=== PATIENT | female | born 1990 | race Caucasian/White ===

== ENCOUNTER 2017-01-04 05:48 | Day surgery (SDC) | payer MEDICAID ==
[2017-01-04] MEDS ORDERED: Dextrose 5%-Lactated Ringers 1,000 ML IV SCH (06:15)
[2017-01-04] MEDS ORDERED: ceFAZolin 2 GM in Premix Bag 1 BAG IV ONE (06:15)
[2017-01-04] MEDS ORDERED: Bupivacaine 0.5% 50 ML MDV ONE (06:44)
[2017-01-04] MEDS ORDERED: Lidocaine 1% with EPINEPHrine 1:200,000 30 ML SDV ONE (06:44)
[2017-01-04] MEDS ORDERED: Rocuronium 50 MG/5 ML Vial ONE ×2 (07:15→07:16)
[2017-01-04] MEDS ORDERED: Succinylcholine/Normal Saline 200 MG/10 ML Syringe ONE ×2 (07:15→07:16)
[2017-01-04] MEDS ORDERED: Dexamethasone 4 MG/ML SDV ONE ×2 (07:15→07:16)
[2017-01-04] MEDS ORDERED: Ondansetron 4 MG/2 ML SDV ONE ×2 (07:15→07:16)
[2017-01-04] MEDS ORDERED: Propofol 200 MG/20 ML SDV ONE ×2 (07:15→07:16)
[2017-01-04] MEDS ORDERED: Neostigmine Methylsulfate 1 MG/ML 5 ML Syringe ONE ×2 (07:15→07:16)
[2017-01-04] MEDS ORDERED: Lidocaine 1% 0 ML ONE (07:16)
[2017-01-04] MEDS ORDERED: fentaNYL 250 MCG/5 ML SDV ONE ×2 (07:16)
[2017-01-04 10:28] VITALS: BP 113/70
--- NOTE | 2017-01-06 12:02 | OR ---
DATE OF PROCEDURE: 01/04/2017 PREOPERATIVE DIAGNOSIS: Painful mass, left anterior chest wall. POSTOPERATIVE DIAGNOSIS: Subfascial lipoma, left anterior chest wall. OPERATIVE PROCEDURE: Excision of the subfascial lipoma, left anterior chest wall ([id number]). ANESTHESIA: General. 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 INDICATION FOR PROCEDURE: This is a 26-year-old female presenting with a painful fullness in the area more less over the left anterior chest wall approximately on the seventh rib. Radiologic workup failed to reveal any bony abnormalities in that area or suggestion of any soft tissue sarcoma per se. The plan is to proceed with exploration of the area and excision of the palpable mass. Potential risk including bleeding, infection, possible recurrence of the problem, persistent pain after the procedure were all reviewed, and the patient wishes to proceed. DETAILS OF PROCEDURE: The patient was taken to the operating room and placed in a supine position. Preoperatively, the area was marked with a skin marker with the patient in the position that she would be in the operating room. After general endotracheal anesthesia was induced, the left anterior chest wall and surrounding areas were prepped and draped. A linear incision over the course of the lesion was made and carried down through the skin and subcutaneous tissue and down through the underlying investing fascia with lipoma was in subfascial location with its removal, exposing the muscular fibers itself. This appeared to be a lipoma and was excised in what appeared to be an intact manner. The lesion upon its removal was measured at 5.3 cm in the long axis. The area of dissection was inspected and some local anesthetic consisting of 0.5% Marcaine was injected both in the musculature as well as the skin and subcutaneous tissue. The incision was then closed with some 2 layers of 3-0 Vicryl stitch deep and wallace for the skin. Dressing was applied. The patient was taken to the recovery room in satisfactory condition. There were no evident complications. Fausto Arndt MD /[id number]
== END 2017-01-04 11:10 | disposition home or self-care (01) ==
LOC: JP.SDS 05:48
PROVIDERS: ATTEND Surgery
PROC: 0JB60ZZ Excision of Chest Subcutaneous Tissue and Fascia, Open Approach (ICD-10-PCS; principal; 2017-01-04)
DX: D17.9 Benign lipomatous neoplasm, unspecified (principal)
CPT/HCPCS: 21554; 36415; 80048; 83735; 84100; 85027; J0690; J1100; J2405; J2704; J3010; J7042; 88304

== ENCOUNTER 2020-10-03 13:11 | Observation (INO) | payer MEDICAID, OTHER ==
[2020-10-03] MEDS ORDERED: hydrOXYzine HCl 25 MG Tab PO ONE (13:19)
[2020-10-03] MEDS ORDERED: Sodium Chloride 0.9% 1,000 ML IV ONE (13:19)
[2020-10-03] MEDS ORDERED: Sodium Chloride 0.9% 10 ML Syringe FLUSH PRN (13:20)
[2020-10-03] MEDS ORDERED: Lactated Ringers 1,000 ML IV ONE (13:23)
[2020-10-03] MEDS ORDERED: Ondansetron 4 MG Tab.DIS PO ONE (14:30)
--- NOTE | 2020-10-03 15:40 | US ---
OB Ltd 1 or More Fetus CLINICAL HISTORY: Left-sided abdominal pain, evaluate cervical length and placenta FINDINGS: There is a single viable intrauterine in vertex position. heart rate is 147 bpm. There is spontaneous motion. Placenta is anterior and free of the cervical os. HOSSEIN is 7.7cm. Cervical length is 3.5 cm IMPRESSION: Viable intrauterine in vertex position Oligohydramnios
[2020-10-03] MEDS ORDERED: Acetaminophen/HYDROcodone 325-5 MG Tab PO PRN (17:06)
[2020-10-03] MEDS ORDERED: Ondansetron 4 MG/2 ML SDV IV PRN (17:06)
[2020-10-03] MEDS ORDERED: Acetaminophen 325 MG Tab PO PRN (17:06)
--- NOTE | 2020-10-03 17:16 | PCM.LDHP ---
L&D History of Present Illness - General Date of Service: 10/03/20 Admit Problem/Dx: Patient Status Order with Admit Dx/Problem 10/03/20 17:07 Patient Status [ADT] Routine Admission Diagnosis/Problem Admission Diagnosis/Problem Kidney stone Source of Information: Patient History Limitations: Reports: No Limitations - History of Present Illness Introduction:: 10/03/20 Patient came into clinic today for vaginal burning and right flank pain thinking she had a UTI. She is a here at 31 1/7 weeks. She has GDM but otherwise declines complications. Her pain in her right flank was quite severe. Vaginitis panel and UA were normal. She was placed on the monitor due to her pain and found to be silvia every 4 minutes approximally in the clinic. FHT's reassuring. She was sent to OB for further monitoring. Contractions spaced to every 6-7 minutes, she is not feeling them and she has made no cervical change. US shows 3.4 cm cervix, placenta looks good, HOSSEIN 6. WBC mildly elevated. She has no abdominal tenderness even with deep palpation. She has a history of kidney stones and I have a strong suspicion this is what is going on currently. She has no cramping, discharge, leaking of fluid, or bleeding. Baby is active and moving lots. The pain started out constant in the right flank and is now waxing and waning. When she has the pain she gets very nauseated. 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: : 2 Para: 1 LMP (Approximate): Musculoskeletal History: Reports: None Neurological History: Reports: None Psychiatric History: Reports: Anxiety Endocrine/Metabolic History: Reports: None Hematologic History: Reports: None Immunologic History: Reports: None Oncologic (Cancer) History: Reports: None Dermatologic History: Reports: None - Infectious Disease History Infectious Disease History: Reports: Chicken Pox - Past Surgical History Head Surgeries/Procedures: Reports: None HEENT Surgical History: Reports: Other (See Below) Other HEENT Surgeries/Procedures: WISDOM TEETH EXTRACTED Cardiovascular Surgical History: Reports: None GI Surgical History: Reports: None Musculoskeletal Surgical History: Reports: None Dermatological Surgical History: Reports: None Social & Family History - Family History Family Medical History: No Pertinent Family History - Caffeine Use Caffeine Use: Reports: Soda, Tea H&P Review of Systems - Review of Systems: Review Of Systems: See Below General: Reports: No Symptoms HEENT: Reports: No Symptoms Pulmonary: Reports: No Symptoms Cardiovascular: Reports: No Symptoms Gastrointestinal: Reports: Nausea, Vomiting Genitourinary: Reports: Burning Musculoskeletal: Reports: Back Pain Skin: Reports: No Symptoms Psychiatric: Reports: No Symptoms Neurological: Reports: No Symptoms Hematologic/Lymphatic: Reports: No Symptoms Immunologic: Reports: No Symptoms L&D Exam - Exam Exam: See Below - Vital Signs Vital Signs: Last Vital Signs Temp 37.3 C 10/03/20 16:30 Pulse 102 H 10/03/20 14:37 Resp 16 10/03/20 14:37 BP 134/76 10/03/20 14:37 Pulse Ox 99 10/03/20 14:37 - OB Specific Contraction Frequency (min): 6-7 Contraction Intensity: Mild to Moderate Heart Rate (FHR) Variability: Moderate (6-25 bmp) Presentation: Vertex - Exam General: Alert, Oriented HEENT: PERRLA, Pupils Equal, Pupils Reactive Neck: Supple, Trachea Midline Lungs: Clear to Auscultation, Normal Respiratory Effort Cardiovascular: Regular Rate, Regular Rhythm GI/Abdominal Exam: Normal Bowel Sounds, Soft, Non-Tender, No Distention, Pelvis Stable. No: Guarding, Rebound, Tender Rectal Exam: Normal Exam Genitourinary: Normal external exam, Normal bimanual exam. No: Vaginal bleeding Back Exam: CVA Tenderness (R) Extremities: Normal Inspection, No Pedal Edema Skin: Warm, Dry, Intact Neurological: Cranial Nerves Intact, Reflexes Equal Bilateral Psychiatric: Alert, Normal Affect, Normal Mood - Patient Data Lab Results Last 24 hrs: Laboratory Results - last 24 hr 10/03/20 10/03/20 10/03/20 Range/Units 14:58 14:58 16:03 WBC Cancelled 13.0 H RBC Cancelled 3.94 Hgb Cancelled 11.7 L Hct Cancelled 36.3 MCV Cancelled 92 MCH Cancelled 30 MCHC Cancelled 32 Plt Count Cancelled 283 Neut % (Auto) 84 H (36-66) % Lymph % (Auto) 10 L (24-44) % [place] % (Auto) 5 (2-6) % Eos % (Auto) 1 L (2-4) % Baso % (Auto) 0 (0-1) % Sodium 141 (140-148) mmol/L Potassium 3.6 (3.6-5.2) mmol/L Chloride 102 (100-108) mmol/L Carbon Dioxide 23 (21-32) mmol/L Anion Gap 16.1 H (5.0-14.0) mmol/L BUN 13 (7-18) mg/dL Creatinine 0.7 (0.6-1.0) mg/dL Est Cr Clr Drug Dosing TNP Estimated GFR (MDRD) > 60 (>60) Glucose 97 (74-106) mg/dL Calcium 8.8 (8.5-10.1) mg/dL Total Bilirubin 0.2 (0.2-1.0) mg/dL AST 20 (15-37) U/L ALT 24 (12-78) U/L Alkaline Phosphatase 69 (46-116) U/L Total Protein 6.7 (6.4-8.2) g/dL Albumin 2.8 L (3.4-5.0) g/dL Globulin 3.9 H (2.3-3.5) g/dL Albumin/Globulin Ratio 0.7 L (1.2-2.2) Result Diagrams: 10/03/20 16:03 10/03/20 14:58 - Problem List (1) Back pain affecting Status: Acute Current Visit: Yes (2) Kidney stone complicating SNOMED Code(s): 06604291 ICD Code: O26.839 - RELATED RENAL DISEASE, UNSPECIFIED TRIMESTER; N20.0 - CALCULUS OF KIDNEY Status: Acute Current Visit: Yes (3) Gestational diabetes SNOMED Code(s): 16697200 ICD Code: O24.419 - GESTATIONAL DIABETES MELLITUS IN , UNSP CONTROL Status: Acute Current Visit: Yes Problem List Initiated/Reviewed/Updated: Yes Orders Last 24hrs: Active Orders 24 hr Category Date Time Status Patient Status [ADT] Routine ADT 10/03/20 17:07 Ordered Communication Order [RC] ASDIRECTED Care 10/03/20 17:10 Ordered Heart Tones [RC] INTERMITTENT Care 10/03/20 17:08 Ordered Notify Provider [RC] PRN Care 10/03/20 17:07 Ordered OB Check [OM.PC] Click to Edit Care 10/03/20 14:30 Ordered Peripheral IV Care [RC] . DIRECTED Care 10/03/20 13:20 Active Up ad Shirley [RC] ASDIRECTED Care 10/03/20 17:06 Ordered Vital Signs [RC] PER UNIT ROUTINE Care 10/03/20 17:07 Ordered Regular Diet [DIET] Diet 10/03/20 Dinner Ordered CBC WITH AUTO DIFF [HEME] AM Lab 10/04/20 05:11 Ordered Acetaminophen [TylenoL] Med 10/03/20 17:06 Ordered 650 mg PO Q4H PRN Acetaminophen/HYDROcodone [Olin 325-5 MG] Med 10/03/20 17:06 Ordered 1 tab PO Q4H PRN Ondansetron [Zofran] Med 10/03/20 17:06 Ordered 4 mg IV Q4H PRN Sodium Chloride 0.9% [Saline Flush] Med 10/03/20 13:20 Active 10 ml FLUSH ASDIRECTED PRN Peripheral IV Insertion Adult [OM.PC] Routine Oth 10/03/20 13:20 Ordered Resuscitation Status Routine Resus Stat 10/03/20 17:06 Ordered Medication Orders Acetaminophen (Acetaminophen 325 Mg Tab) 650 mg PO Q4H PRN PRN Reason: mild pain and fever Hydrocodone Bitart/Acetaminophen (Acetaminophen/Hydrocodone 325-5 Mg Tab) 1 tab PO Q4H PRN PRN Reason: Pain (moderate 4-6) Ondansetron HCl (Ondansetron 4 Mg/2 Ml Sdv) 4 mg IV Q4H PRN PRN Reason: Nausea/Vomiting Sodium Chloride (Sodium Chloride 0.9% 10 Ml Syringe) 10 ml FLUSH ASDIRECTED PRN PRN Reason: Keep Vein Open Assessment/Plan Comment:: 10/03/20 Assessment: at 31 1/7 weeks with what is very likely kidney stones in vs back strain No abdominal tenderness, has right CVA tenderness, nausea, back pain Silvia, not feeling them, not changing her cervix Afebrile Pain that comes in waves now WBC 13.0 Plan: I called DusonRhonda Silva to consult on the patients presentation and amount of pain present and where to go from here. She had a normal vaginitis panel and UA. She does not present to have any abdominal origin of pain. todd she is stable. He recommends admitting her overnight for fluids and observation. We will strain all urine. I would like her monitored for 20 minutes every 4 hours, more if feeling contractions or having problems. If she is still having pain tomorrow am we will do a renal US. This pain is likely back strain vs kidney stones.
[2020-10-03] MEDS ORDERED: hydrOXYzine HCl 25 MG Tab PO PRN (17:20)
[2020-10-03] MEDS ORDERED: Lactated Ringers 1,000 ML IV SCH (19:45)
[2020-10-04 07:56] VITALS: BP 109/62; PULSE 94
--- NOTE | 2020-10-04 08:11 | PCM.PN ---
- General Info Date of Service: 10/04/20 Subjective Update: 10/04/20 Patient was admitted yesterday for what was presumed to be a kidney stone in . Due to the amount of pain we did admit and observe her overnight to be sure it was not an obstetrical problem. She did pass a stone overnight. She feels great this morning. No back pain, no abdominal pain, no nausea or vomiting. Baby is active and moving. Functional Status: Reports: Pain Controlled, Tolerating Diet, Ambulating, Urinating - Review of Systems General: Reports: No Symptoms HEENT: Reports: No Symptoms Pulmonary: Reports: No Symptoms Cardiovascular: Reports: No Symptoms Gastrointestinal: Reports: No Symptoms Genitourinary: Reports: No Symptoms Musculoskeletal: Reports: No Symptoms Skin: Reports: No Symptoms Neurological: Reports: No Symptoms Psychiatric: Reports: No Symptoms - Patient Data Vitals - Most Recent: Last Vital Signs Temp 36.7 C 10/04/20 07:10 Pulse 94 10/04/20 07:10 Resp 16 10/04/20 07:10 BP 109/62 10/04/20 07:10 Pulse Ox 95 10/04/20 07:10 Weight - Most Recent: 97.069 kg I&O - Last 24 Hours: Intake & Output 10/03/20 10/04/20 10/04/20 22:59 06:59 14:59 Intake Total 3000 250 Output Total 1000 600 Balance 2000 -350 Lab Results Last 24 Hours: Laboratory Results - last 24 hr 10/03/20 10/03/20 10/03/20 Range/Units 14:58 14:58 16:03 WBC Cancelled 13.0 H RBC Cancelled 3.94 Hgb Cancelled 11.7 L Hct Cancelled 36.3 MCV Cancelled 92 MCH Cancelled 30 MCHC Cancelled 32 Plt Count Cancelled 283 Neut % (Auto) 84 H (36-66) % Lymph % (Auto) 10 L (24-44) % [place] % (Auto) 5 (2-6) % Eos % (Auto) 1 L (2-4) % Baso % (Auto) 0 (0-1) % Sodium 141 (140-148) mmol/L Potassium 3.6 (3.6-5.2) mmol/L Chloride 102 (100-108) mmol/L Carbon Dioxide 23 (21-32) mmol/L Anion Gap 16.1 H (5.0-14.0) mmol/L BUN 13 (7-18) mg/dL Creatinine 0.7 (0.6-1.0) mg/dL Est Cr Clr Drug Dosing TNP Estimated GFR (MDRD) > 60 (>60) Glucose 97 (74-106) mg/dL Calcium 8.8 (8.5-10.1) mg/dL Total Bilirubin 0.2 (0.2-1.0) mg/dL AST 20 (15-37) U/L ALT 24 (12-78) U/L Alkaline Phosphatase 69 (46-116) U/L Total Protein 6.7 (6.4-8.2) g/dL Albumin 2.8 L (3.4-5.0) g/dL Globulin 3.9 H (2.3-3.5) g/dL Albumin/Globulin Ratio 0.7 L (1.2-2.2) Urine Color (YELLOW) Urine Appearance (CLEAR) Urine pH (5.0-8.0) Ur Specific Lyman (1.008-1.030) Urine Protein (NEGATIVE) mg/dL Urine Glucose (UA) (NEGATIVE) mg/dL Urine Ketones (NEGATIVE) mg/dL Urine Occult Blood (NEGATIVE) Urine Nitrite (NEGATIVE) Urine Bilirubin (NEGATIVE) Urine Urobilinogen (0.2-1.0) EU/dL Ur Leukocyte Esterase (NEGATIVE) Urine RBC (0-5) Urine WBC (0-5) Ur Epithelial Cells Amorphous Sediment Urine Bacteria Urine Mucus 10/03/20 10/04/20 Range/Units 19:32 05:55 WBC 10.1 RBC 3.48 Hgb 10.2 L Hct 32.5 L MCV 93 MCH 29 MCHC 31 L Plt Count 247 Neut % (Auto) 74 H (36-66) % Lymph % (Auto) 18 L (24-44) % [place] % (Auto) 7 H (2-6) % Eos % (Auto) 1 L (2-4) % Baso % (Auto) 0 (0-1) % Sodium (140-148) mmol/L Potassium (3.6-5.2) mmol/L Chloride (100-108) mmol/L Carbon Dioxide (21-32) mmol/L Anion Gap (5.0-14.0) mmol/L BUN (7-18) mg/dL Creatinine (0.6-1.0) mg/dL Est Cr Clr Drug Dosing Estimated GFR (MDRD) (>60) Glucose (74-106) mg/dL Calcium (8.5-10.1) mg/dL Total Bilirubin (0.2-1.0) mg/dL AST (15-37) U/L ALT (12-78) U/L Alkaline Phosphatase (46-116) U/L Total Protein (6.4-8.2) g/dL Albumin (3.4-5.0) g/dL Globulin (2.3-3.5) g/dL Albumin/Globulin Ratio (1.2-2.2) Urine Color Yellow (YELLOW) Urine Appearance Clear (CLEAR) Urine pH 6.5 (5.0-8.0) Ur Specific Lyman 1.020 (1.008-1.030) Urine Protein Negative (NEGATIVE) mg/dL Urine Glucose (UA) Negative (NEGATIVE) mg/dL Urine Ketones 40 H (NEGATIVE) mg/dL Urine Occult Blood Trace-intact H (NEGATIVE) Urine Nitrite Negative (NEGATIVE) Urine Bilirubin Negative (NEGATIVE) Urine Urobilinogen 0.2 (0.2-1.0) EU/dL Ur Leukocyte Esterase Negative (NEGATIVE) Urine RBC 5-10 H (0-5) Urine WBC 0-5 (0-5) Ur Epithelial Cells Few Amorphous Sediment Not seen Urine Bacteria Many Urine Mucus Not seen Med Orders - Current: Current Medications Acetaminophen (Acetaminophen 325 Mg Tab) 650 mg PO Q4H PRN PRN Reason: mild pain and fever Hydrocodone Bitart/Acetaminophen (Acetaminophen/Hydrocodone 325-5 Mg Tab) 1 tab PO Q4H PRN PRN Reason: Pain (moderate 4-6) Last Admin: 10/03/20 19:30 Dose: 1 tab Documented by: Hydroxyzine HCl (Hydroxyzine Hcl 25 Mg Tab) 50 mg PO Q8H PRN PRN Reason: Other Last Admin: 10/03/20 21:21 Dose: 50 mg Documented by: Lactated Ringer's (Ringers, Lactated) 1,000 mls @ 125 mls/hr IV ASDIRECTED LILLY Last Admin: 10/03/20 19:36 Dose: 125 mls/hr Documented by: Ondansetron HCl (Ondansetron 4 Mg/2 Ml Sdv) 4 mg IV Q4H PRN PRN Reason: Nausea/Vomiting Sodium Chloride (Sodium Chloride 0.9% 10 Ml Syringe) 10 ml FLUSH ASDIRECTED PRN PRN Reason: Keep Vein Open Discontinued Medications Hydroxyzine HCl (Hydroxyzine Hcl 25 Mg Tab) 50 mg PO ONETIME ONE Stop: 10/03/20 13:20 Last Admin: 10/03/20 13:26 Dose: 50 mg Documented by: Sodium Chloride (Normal Saline) 1,000 mls @ 999 mls/hr IV .BOLUS ONE Stop: 10/03/20 14:19 Last Admin: 10/03/20 14:47 Dose: Not Given Documented by: Lactated Ringer's (Ringers, Lactated) 1,000 mls @ 999 mls/hr IV BOLUS ONE Stop: 10/03/20 14:23 Last Admin: 10/03/20 13:33 Dose: 999 mls/hr Documented by: Ondansetron HCl (Ondansetron 4 Mg Tab.Dis) 4 mg PO ONETIME ONE Stop: 10/03/20 14:31 Last Admin: 10/03/20 14:46 Dose: 4 mg Documented by: - Exam General: Alert, Oriented HEENT: Pupils Equal, Pupils Reactive, Mucous Membr. Moist/Lavinia Lungs: Clear to Auscultation, Normal Respiratory Effort Cardiovascular: Regular Rate, Regular Rhythm GI/Abdominal Exam: Normal Bowel Sounds, Non-Tender Back Exam: Normal Inspection, Full Range of Motion. No: CVA Tenderness (R) Extremities: Normal Inspection, No Pedal Edema Skin: Warm, Dry, Intact Neurological: No New Focal Deficit Psy/Mental Status: Alert, Normal Affect, Normal Mood - Patient Data Lab Results Last 24 hrs: Laboratory Results - last 24 hr 10/03/20 10/03/20 10/03/20 Range/Units 14:58 14:58 16:03 WBC Cancelled 13.0 H RBC Cancelled 3.94 Hgb Cancelled 11.7 L Hct Cancelled 36.3 MCV Cancelled 92 MCH Cancelled 30 MCHC Cancelled 32 Plt Count Cancelled 283 Neut % (Auto) 84 H (36-66) % Lymph % (Auto) 10 L (24-44) % [place] % (Auto) 5 (2-6) % Eos % (Auto) 1 L (2-4) % Baso % (Auto) 0 (0-1) % Sodium 141 (140-148) mmol/L Potassium 3.6 (3.6-5.2) mmol/L Chloride 102 (100-108) mmol/L Carbon Dioxide 23 (21-32) mmol/L Anion Gap 16.1 H (5.0-14.0) mmol/L BUN 13 (7-18) mg/dL Creatinine 0.7 (0.6-1.0) mg/dL Est Cr Clr Drug Dosing TNP Estimated GFR (MDRD) > 60 (>60) Glucose 97 (74-106) mg/dL Calcium 8.8 (8.5-10.1) mg/dL Total Bilirubin 0.2 (0.2-1.0) mg/dL AST 20 (15-37) U/L ALT 24 (12-78) U/L Alkaline Phosphatase 69 (46-116) U/L Total Protein 6.7 (6.4-8.2) g/dL Albumin 2.8 L (3.4-5.0) g/dL Globulin 3.9 H (2.3-3.5) g/dL Albumin/Globulin Ratio 0.7 L (1.2-2.2) Urine Color (YELLOW) Urine Appearance (CLEAR) Urine pH (5.0-8.0) Ur Specific Lyman (1.008-1.030) Urine Protein (NEGATIVE) mg/dL Urine Glucose (UA) (NEGATIVE) mg/dL Urine Ketones (NEGATIVE) mg/dL Urine Occult Blood (NEGATIVE) Urine Nitrite (NEGATIVE) Urine Bilirubin (NEGATIVE) Urine Urobilinogen (0.2-1.0) EU/dL Ur Leukocyte Esterase (NEGATIVE) Urine RBC (0-5) Urine WBC (0-5) Ur Epithelial Cells Amorphous Sediment Urine Bacteria Urine Mucus 10/03/20 10/04/20 Range/Units 19:32 05:55 WBC 10.1 RBC 3.48 Hgb 10.2 L Hct 32.5 L MCV 93 MCH 29 MCHC 31 L Plt Count 247 Neut % (Auto) 74 H (36-66) % Lymph % (Auto) 18 L (24-44) % [place] % (Auto) 7 H (2-6) % Eos % (Auto) 1 L (2-4) % Baso % (Auto) 0 (0-1) % Sodium (140-148) mmol/L Potassium (3.6-5.2) mmol/L Chloride (100-108) mmol/L Carbon Dioxide (21-32) mmol/L Anion Gap (5.0-14.0) mmol/L BUN (7-18) mg/dL Creatinine (0.6-1.0) mg/dL Est Cr Clr Drug Dosing Estimated GFR (MDRD) (>60) Glucose (74-106) mg/dL Calcium (8.5-10.1) mg/dL Total Bilirubin (0.2-1.0) mg/dL AST (15-37) U/L ALT (12-78) U/L Alkaline Phosphatase (46-116) U/L Total Protein (6.4-8.2) g/dL Albumin (3.4-5.0) g/dL Globulin (2.3-3.5) g/dL Albumin/Globulin Ratio (1.2-2.2) Urine Color Yellow (YELLOW) Urine Appearance Clear (CLEAR) Urine pH 6.5 (5.0-8.0) Ur Specific Lyman 1.020 (1.008-1.030) Urine Protein Negative (NEGATIVE) mg/dL Urine Glucose (UA) Negative (NEGATIVE) mg/dL Urine Ketones 40 H (NEGATIVE) mg/dL Urine Occult Blood Trace-intact H (NEGATIVE) Urine Nitrite Negative (NEGATIVE) Urine Bilirubin Negative (NEGATIVE) Urine Urobilinogen 0.2 (0.2-1.0) EU/dL Ur Leukocyte Esterase Negative (NEGATIVE) Urine RBC 5-10 H (0-5) Urine WBC 0-5 (0-5) Ur Epithelial Cells Few Amorphous Sediment Not seen Urine Bacteria Many Urine Mucus Not seen Result Diagrams: 10/04/20 05:55 10/03/20 14:58 Sepsis Event Note - Evaluation Sepsis Screening Result: No Definite Risk - Focused Exam Vital Signs: Vital Signs Temp Pulse Resp BP Pulse Ox 10/04/20 07:10 36.7 C 94 16 109/62 95 10/04/20 04:06 95/51 L 10/04/20 04:04 37.0 C 88 18 85/44 L 95 - Problem List & Annotations (1) Back pain affecting Status: Acute Current Visit: Yes (2) Kidney stone complicating SNOMED Code(s): 40361784 Code(s): O26.839 - RELATED RENAL DISEASE, UNSPECIFIED TRIMESTER; N20.0 - CALCULUS OF KIDNEY Status: Acute Current Visit: Yes (3) Gestational diabetes SNOMED Code(s): 79905716 Code(s): O24.419 - GESTATIONAL DIABETES MELLITUS IN , UNSP CONTROL Status: Acute Current Visit: Yes - Problem List Review Problem List Initiated/Reviewed/Updated: Yes - My Orders Last 24 Hours: My Active Orders 10/03/20 13:20 Peripheral IV Care [RC] . DIRECTED Sodium Chloride 0.9% [Saline Flush] 10 ml FLUSH ASDIRECTED PRN Peripheral IV Insertion Adult [OM.PC] Routine 10/03/20 14:30 OB Check [OM.PC] Click to Edit 10/03/20 Dinner Regular Diet [DIET] 10/03/20 17:06 Up ad Shirley [RC] ASDIRECTED Acetaminophen [TylenoL] 650 mg PO Q4H PRN Acetaminophen/HYDROcodone [[place]urley 325-5 MG] 1 tab PO Q4H PRN Ondansetron [Zofran] 4 mg IV Q4H PRN Resuscitation Status Routine 10/03/20 17:07 Patient Status [ADT] Routine Notify Provider [RC] PRN Vital Signs [RC] PER UNIT ROUTINE 10/03/20 17:08 Heart Tones [RC] INTERMITTENT 10/03/20 17:10 Communication Order [RC] ASDIRECTED 10/03/20 17:20 hydrOXYzine HCL [Atarax] 50 mg PO Q8H PRN 10/03/20 19:45 Lactated Ringers [Ringers, Lactated] 1,000 ml IV ASDIRECTED 10/03/20 23:37 STONE ANALYSIS Routine - Assessment Assessment:: 10/04/20 Passed stone overnight No flank pain or abdominal pain Baby is moving well Some uterine irritability but no contractions WBC normal - Plan Plan:: 10/03/20 Assessment: at 31 1/7 weeks with what is very likely kidney stones in vs back strain No abdominal tenderness, has right CVA tenderness, nausea, back pain Marisabel, not feeling them, not changing her cervix Afebrile Pain that comes in waves now WBC 13.0 Plan: I called Philadel[place]ac[facility] Silva to consult on the patients presentation and amount of pain present and where to go from here. She had a normal vaginitis panel and UA. She does not present to have any abdominal origin of pain. todd she is stable. He recommends admitting her overnight for fluids and observation. We will strain all urine. I would like her monitored for 20 minutes every 4 hours, more if feeling contractions or having problems. If she is still having pain tomorrow am we will do a renal US. This pain is likely back strain vs kidney stones. 10/04/20 Discharge home today in stable condition Follow up next week with primary OB provider Push fluids 3 L per day
== END 2020-10-04 09:00 | disposition home or self-care (01) ==
LOC: JP.OB 13:11
PROVIDERS: ADMIT Advanced Practice Midwife; ATTEND Advanced Practice Midwife
DX: O26.833 Pregnancy related renal disease, third trimester (principal); N20.0 Calculus of kidney; O41.03X1 Oligohydramnios, third trimester, fetus 1; O24.419 Gestational diabetes mellitus in pregnancy, unspecified control; O26.893 Other specified pregnancy related conditions, third trimester; M54.5 Low back pain; Z3A.31 31 weeks gestation of pregnancy
CPT/HCPCS: 36415; 76815; 76815-26; 80053; 81001; 82365; 85025; 99211; A9270-GY; J7120